=== PATIENT | female | born 1995 | race Caucasian/White ===

== ENCOUNTER 2017-05-10 11:50 | Day surgery (SDC) | payer MEDICAID ==
[2017-05-10] MEDS ORDERED: LR 1,000 ML IV ONE (12:23)
[2017-05-10 12:38] VITALS: PULSE 69
--- NOTE | 2017-05-10 13:17 | PDGENHP ---
History & Physical Chief Complaint: Epigastic pain Relevant Physical Exam: GEN: NAD. Cardiac: RRR. Lungs: CTA B. Abd: Soft, nd, nt
--- NOTE | 2017-05-10 13:18 | PDANEPAE ---
ANE History of Present Illness abdominal pain ANE Past Medical History - Cardiovascular History Hx Hypertension: No Hx Arrhythmias: No Hx Chest Pain: No Hx Coronary Artery / Peripheral Vascular Disease: No Hx CHF / Valvular Disease: No Hx Palpitations: No - Pulmonary History Hx COPD: No Hx Asthma/Reactive Airway Disease: No Hx Recent Upper Respiratory Infection: No Hx Oxygen in Use at Home: No Hx Sleep Apnea: No Sleep Apnea Screening Result - Last Documented: Negative - Neurologic History Hx Cerebrovascular Accident: No Hx Seizures: No Hx Dementia: No - Endocrine History Hx Diabetes: No - Renal History Hx Renal Disorders: No - Liver History Hx Hepatic Disorders: No - Neurological & Psychiatric Hx Hx Neurological and Psychiatric Disorders: Yes Neurological / Psychiatric History Comment: DEPRESSION - Cancer History Hx Cancer: No - Congenital Disorder History Hx Congenital Disorders: No - GI History Hx Gastrointestinal Disorders: Yes Gastrointestinal History Comment: REFLUX,SHARP PAIN MIDLINE UNDER RIBS/DIAHHREA. - Other Health History Other Health History: NONE - Chronic Pain History Chronic Pain: No - Surgical History Prior Surgeries: WISDOM TEETH 2016 ANE Review of Systems Review of Systems: - Exercise capacity METS (RN): 5 METS ANE Patient History - Allergies Allergies/Adverse Reactions: No Known Allergies Allergy (Verified 05/03/17 16:24) - Home Medications Home Medications: Hydrocodon-Acetaminophen 5-325 05/03/17 [Last Taken 05/09/17] Nexium 05/03/17 [Last Taken 05/09/17] Advil PO 05/10/17 [Last Taken 05/10/17] - NPO status NPO Since - Liquids (Date): 05/10/17 NPO Since - Liquids (Time): 11:30 NPO Since - Solids (Date): 05/09/17 NPO Since - Solids (Time): 23:00 - Smoking Hx Smoking Status: Current every day smoker - Family Anes Hx Family Hx Anesthesia Complications: NONE ANE Labs/Vital Signs - Vital Signs Blood Pressure: 108/58 Heart Rate: 69 Respiratory Rate: 14 O2 Sat (%): 97 Height: 160.02 cm Weight: 52.617 kg ANE Physical Exam - Airway Neck exam: FROM Mallampati Score: Class 1 Mouth exam: normal dental/mouth exam - Pulmonary Pulmonary: no respiratory distress - Cardiovascular Cardiovascular: regular rate and rhythym - ASA Status ASA Status: I ANE Anesthesia Plan Total IV Anesthesia: Yes
[2017-05-10] MEDS ORDERED: NALOXONE HCL 0.4 MG/ML INJ IVP PRN (13:19)
--- NOTE | 2017-05-10 13:47 | GIREPORT ---
[facility] Surgical Services - Endoscopy Department Patient Name: Madeline Burciaga Procedure Date: 05/10/2017 1:34 PM Patient Type: Outpatient Attending MD/ ER Physician: Shane Colvin MD Procedure: Upper GI endoscopy Indications: Epigastric abdominal pain after eating. Heartburn. Providers: Shane Colvin MD Medicines: Monitored Anesthesia Care Complications: No immediate complications. Description of Procedure: After obtaining informed consent, the endoscope was passed under direct vision. Throughout the procedure, the patient's blood pressure, pulse, and oxygen saturations were monitored continuous ly. The Endoscope was introduced through the mouth, and advanced to the second part of duodenum. The upper GI endoscopy was accomplished without difficulty. The patient tolerated the procedure well . Findings: The upper third of the esophagus and middle third of the esophagus were normal. The Z-line was irregular and was found 36 cm from the incisors. Biopsies were taken with a cold forceps for histology. Verification of patient identification for the specimen was done by the physician and nurse using the patient's name and date. Estimated blood loss was minimal. Localized mild inflammation characterized by erosions, erythema and friability was found in the gastric antrum. Biopsies were taken with a cold forceps for histology. Verification of patient identification for the specimen was done by the physician and nurse using the patient's name and date. Estimated blood loss was minimal. The examined duodenum was normal. Biopsies were taken with a cold forceps for histology. Verific ation of patient identification for the specimen was done by the physician and nurse using the patient 's name and date. Estimated blood loss was minimal. Estimated Blood Loss: Estimated blood loss: none. Post Op Diagnosis: - Normal upper third of esophagus and middle third of esophagus. - Z-line irregular, 36 cm from the incisors. Biopsied. - Gastritis. Biopsied. - Normal examined duodenum. Biopsied. Recommendation: - Discharge patient to home (ambulatory). - Resume previous diet. - Continue present medications. - Return to GI clinic as previously scheduled. - Await pathology results. Results are available within 10 days. - Thank you for allowing me to participate in the care of your patient. Attending Participation: I personally performed the entire procedure. Shane Colvin MD Shane Colvin MD 05/10/2017 1:47:08 PM Number of Addenda: 0 Note Initiated On: 05/10/2017 1:34 PM [email or web address]
--- NOTE | 2017-05-10 13:49 | POSTANESTH ---
Post Anesthetic Evaluation Cardiovascular Status: Normal, Stable Respiratory Status: Normal, Stable Level of Consciousness/Mental Status: Can Participate in Eval Pain Control: Adequate, Prn Tx Ordered Nausea/Vomiting Control: Adequate, Prn Tx Ordered Complications Possibly Related to Anesthesia: None Noted
[2017-05-10 14:13] VITALS: TEMP 98.1
[2017-05-10 15:16] VITALS: BP 103/63; RESP 16; O2SAT 98
== END 2017-05-10 15:25 | disposition home or self-care (01) ==
LOC: FSGY 11:50
PROVIDERS: ATTEND Internal Medicine Gastroenterology
PROC: 0DB98ZX Excision of Duodenum, Via Natural or Artificial Opening Endoscopic, Diagnostic (ICD-10-PCS; principal; 2017-05-10 13:30)
PROC: 0DB48ZX Excision of Esophagogastric Junction, Via Natural or Artificial Opening Endoscopic, Diagnostic (ICD-10-PCS; principal; 2017-05-10 13:30)
PROC: 0DB68ZX Excision of Stomach, Via Natural or Artificial Opening Endoscopic, Diagnostic (ICD-10-PCS; principal; 2017-05-10 13:30)
DX: K29.70 Gastritis, unspecified, without bleeding (principal); K22.8 Other specified diseases of esophagus; K21.9 Gastro-esophageal reflux disease without esophagitis; K29.80 Duodenitis without bleeding; R10.13 Epigastric pain

== ENCOUNTER 2017-05-11 09:43 | Emergency (ER) | payer MEDICAID ==
--- NOTE | 2017-05-11 10:54 | EDPHY ---
H & P Stated Complaint: Rectal bleeding;had EGD yesterday Time Seen by Provider: 05/11/17 10:53 HPI/ROS: HPI: This is a 21-year-old female who presents with Chief Complaint:Rectal bleeding;had EGD yesterday Location:rectal Quality: bleeding Duration: yesterday Signs and Symptoms:+ nausea, + chronic epigastric pain and burning, no diarrhea , no fever, no chills, no vaginal discharge, no vaginal bleeding, no trauma/ injury, no hemorrhoids Timing: Sudden Severity: Mild Context: Patient reports that she woke up yesterday morning and had a bowel movement tinged with blood. She then had her EGD with Dr. Shane Colvin for epigastric pain which showed gastritis and Z line irregularity that was biopsied. Patient is taking Nexium 40 mg twice a day. She was at work today and had another bowel movement and noted blood in the toilet. She reports that 2-3 years ago she had a rectal sphincter tear during sexual intercourse and has noted some sensitivity to the area since then. She denies any history of hemorrhoids/constipation. She was scheduled for colonoscopy today she received a call 1 hour ago that was canceled due to this hospital being full. Denies regular NSAID use. LMP 2-3 weeks ago. Modifying Factors: None Comment: ROS: see HPI Constitutional: No fever, no chills, no weight loss Eyes: No blurred vision Respiratory: No shortness of breath, no cough Cardiovascular: No chest pain Gastrointestinal: No nausea, no vomiting, no diarrhea Genitourinary: No dysuria Extremities: No myalgias Neurologic: No weakness, no numbness Skin: No rashes Hematologic: No bruising MEDICAL/SURGICAL/SOCIAL HISTORY: Medical history: gastritis Surgical history: Denies Social history: in a relationship CONSTITUTIONAL: petite well-appearing young adult female, awake and alert, no obvious distress HEENT: Atraumatic and normocephalic, PERRL, EOMI. Tympanic membranes clear. Oropharynx clear, no exudate and moist pink mucosa. Airway patent. No lymphadenopathy. No meningismus. Cardiovascular: Normal S1/S2, regular rate, regular rhythm, without murmur rub or gallop. PULMONARY/CHEST: Symmetrical and nontender. Clear to auscultation bilaterally. Good air movement. No accessory muscle usage. ABDOMEN: Soft, nondistended, nontender, no rebound, no guarding, no peritoneal signs, no masses or organomegaly. No CVAT. RECTAL: Good sphincter tone, moderate amount of light brown stool in vault, no external hemorrhoids, no fissures, no palpable masses, no tears, guaiac negative EXTREMITIES: 2/2 pulses, no deformities, no clubbing, no cyanosis or edema. NEUROLOGICAL: no focal neuro deficits. GCS 15. SKIN: Warm and dry, no erythema. no rash. Good capillary refill. Source: Patient Exam Limitations: No limitations - Personal History LMP (Females 10-55): 15-21 Days Ago Current Tetanus Diphtheria and Acellular Pertussis (TDAP): Yes - Medical/Surgical History Hx Asthma: No Hx Chronic Respiratory Disease: No Hx Diabetes: No Hx Cardiac Disease: No Hx Renal Disease: No Hx Cirrhosis: No Hx Alcoholism: No Hx HIV/AIDS: No Hx Splenectomy or Spleen Trauma: No Other PMH: - Social History Smoking Status: Former smoker Constitutional: Initial Vital Signs Temperature (C) 36.6 C 05/11/17 09:50 Heart Rate 54 L 05/11/17 09:50 Respiratory Rate 18 05/11/17 09:50 Blood Pressure 122/66 H 05/11/17 09:50 O2 Sat (%) 97 05/11/17 09:50 O2 Delivery Mode Room Air Allergies/Adverse Reactions: No Known Allergies Allergy (Verified 05/11/17 09:56) Home Medications: Medication Instructions Recorded Nexium 05/03/17 Hydrocortisone Acetate 25 mg SC Q6 PRN #7 supp 05/11/17 [Hemorrhoidal Hc 25 mg supp (*)] Polyethylene Glycol 3350 [Miralax 17 gm PO DAILY PRN #12 pkt 05/11/17 17 gm (*)] Medical Decision Making - Diagnostics Imaging Results: Imaging Impressions Abdomen X-Ray 05/11/17 11:15 Impression: Normal bowel pattern. ED Course/Re-evaluation: Labs, KUB ordered. Vital signs reviewed and stable. Abdominal x-ray my review shows stool in the rectal vault; nonobstructive bowel pattern. Guaiac was negative. 1230: ED decision to consult Dr. Colvin; tried to times with unsuccessful attempt to make contact. 1240: Patient asking to eat something; tolerated to aashish deb, crackers without difficulty. 1310: Patient asking to be discharged home. Differential Diagnosis: Rectal bleeding differential includes hemorrhoids, constipation, diverticular disease, straining with defecation. - Data Points Laboratory Results: 05/11/17 11:10 Stool Occult Bld Scrn NEGATIVE (NEGATIVE) Departure - Departure Disposition: Home, Routine, Self-Care Clinical Impression: Rectal irritation Constipation Qualifiers: Constipation type: unspecified constipation type Qualified Code(s): K59.00 - Constipation, unspecified Condition: Good Instructions: Constipation (ED) Additional Instructions: Abdominal x-ray today shows significant stool burden in your rectal vault. Please prevent constipation and drink plenty of fluids, take MiraLax daily until having daily soft bowel movements. Avoid all NSAIDs including ibuprofen, Aleve, Motrin, etc... Please call Dr. Colvin for your follow-up appointment to re-schedule colonoscopy. Referrals: Shane Colvin MD [Medical Doctor] - As per Instructions Stand Alone Forms: Work Excuse Prescriptions: Hydrocortisone Acetate [Hemorrhoidal Hc 25 mg supp (*)] 25 mg SC Q6 PRN #7 supp PRN Reason: Inflammation Polyethylene Glycol 3350 [Miralax 17 gm (*)] 17 gm PO DAILY PRN #12 pkt PRN Reason: Constipation
[2017-05-11 13:25] VITALS: BP 116/69; PULSE 89; RESP 18; TEMP 98.8; O2SAT 96
== END 2017-05-11 13:19 | disposition home or self-care (01) ==
DX: K62.89 Other specified diseases of anus and rectum (principal); K59.00 Constipation, unspecified; Z87.891 Personal history of nicotine dependence

== ENCOUNTER 2017-06-07 05:57 | Day surgery (SDC) | payer MEDICAID ==
[2017-06-07] MEDS ORDERED: LR 1,000 ML IV ONE (06:12)
[2017-06-07] MEDS ORDERED: LIDOCAINE 1% 2 ML INJ ID PRN (06:12)
--- NOTE | 2017-06-07 07:26 | PDGENHP ---
History & Physical Chief Complaint: Rectal bleeding Relevant Physical Exam: GEN: NAD. Cardiac: RRR. Lungs: CTA B. Abd: Soft, nt, nd
--- NOTE | 2017-06-07 07:26 | PDGENHP ---
History & Physical Chief Complaint: Rectal bleeding Relevant Physical Exam: GEN: NAD. Cardiac: RRR. Lungs: CTA B. Abd: Soft, nt, nd
--- NOTE | 2017-06-07 07:26 | PDGENHP ---
History & Physical Chief Complaint: Rectal bleeding Relevant Physical Exam: GEN: NAD. Cardiac: RRR. Lungs: CTA B. Abd: Soft, nt, nd
--- NOTE | 2017-06-07 07:28 | PDANEPAE ---
ANE History of Present Illness abdominal pain ANE Past Medical History - Cardiovascular History Hx Hypertension: No Hx Arrhythmias: No Hx Chest Pain: No Hx Coronary Artery / Peripheral Vascular Disease: No Hx CHF / Valvular Disease: No Hx Palpitations: No - Pulmonary History Hx COPD: No Hx Asthma/Reactive Airway Disease: No Hx Recent Upper Respiratory Infection: No Hx Oxygen in Use at Home: No Hx Sleep Apnea: No Sleep Apnea Screening Result - Last Documented: Negative - Neurologic History Hx Cerebrovascular Accident: No Hx Seizures: No Hx Dementia: No - Endocrine History Hx Diabetes: No - Renal History Hx Renal Disorders: No - Liver History Hx Hepatic Disorders: No - Neurological & Psychiatric Hx Hx Neurological and Psychiatric Disorders: Yes Neurological / Psychiatric History Comment: DEPRESSION/anxiety - Cancer History Hx Cancer: No - Congenital Disorder History Hx Congenital Disorders: No - GI History Hx Gastrointestinal Disorders: Yes Gastrointestinal History Comment: REFLUX,DIARRHEA. pain "Bottom of stomach". - Other Health History Other Health History: NONE - Chronic Pain History Chronic Pain: No - Surgical History Prior Surgeries: upper endoscopy 05-03-17. WISDOM TEETH 2016 ANE Review of Systems Review of Systems: ANE Patient History - Allergies Allergies/Adverse Reactions: No Known Allergies Allergy (Verified 05/24/17 13:45) - Home Medications Home Medications: Ranitidine HCl 05/24/17 [Last Taken Unknown] - NPO status NPO Since - Liquids (Date): 06/06/17 NPO Since - Liquids (Time): 22:00 NPO Since - Solids (Date): 06/05/17 NPO Since - Solids (Time): 21:00 - Smoking Hx Smoking Status: Former smoker - Family Anes Hx Family Hx Anesthesia Complications: NONE ANE Labs/Vital Signs - Vital Signs Blood Pressure: 126/77 Heart Rate: 66 Respiratory Rate: 16 O2 Sat (%): 94 Height: 160.02 cm Weight: 52.617 kg ANE Physical Exam - Airway Neck exam: FROM Mallampati Score: Class 1 Mouth exam: normal dental/mouth exam - Pulmonary Pulmonary: no respiratory distress - Cardiovascular Cardiovascular: regular rate and rhythym - ASA Status ASA Status: I ANE Anesthesia Plan Total IV Anesthesia: Yes
[2017-06-07] MEDS ORDERED: PROPOFOL 200 MG/20 ML VIAL ONE ×2 (07:30)
--- NOTE | 2017-06-07 07:54 | GIREPORT ---
[facility] Surgical Services - Endoscopy Department Patient Name: Madeline Burciaga Procedure Date: 06/07/2017 7:19 AM Patient Type: Outpatient Attending / ER Physician: Shane Colvin MD Procedure: Colonoscopy Indications: Hematochezia Providers: Shane Colvin MD Medicines: Monitored Anesthesia Care Complications: No immediate complications. Description of Procedure: After obtaining informed consent, the scope was passed under direct vis ion. Throughout the procedure, the patient's blood pressure, pulse, and oxyg en saturations were monitored continuously. The Colonoscope with irrigatio n channel was introduced through the anus and advanced to the terminal il eum, with identification of the appendiceal orifice and IC valve. The colono scopy was performed without difficulty. The patient tolerated the procedure w ell. The quality of the bowel preparation was good. Findings: The perianal and digital rectal examinations were normal. The terminal ileum appeared normal. The colon (entire examined portion) appeared normal. The retroflexed view of the distal rectum and anal verge was normal and showed no anal or rectal abnormalities. Estimated Blood Loss: Estimated blood loss: none. Post Op Diagnosis: - The examined portion of the ileum was normal. - The entire examined colon is normal. - The distal rectum and anal verge are normal on retroflexion view. - No specimens collected. - No findings to explain rectal bleeding. Recommendation: - Discharge patient to home (with escort). - Resume previous diet. - Continue present medications. - Repeat colonoscopy at age 50 for screening purposes. - Thank you for allowing me to participate in the care of your patient. Attending Participation: I personally performed the entire procedure. Shane Colvin MD Shane Colvin MD 06/07/2017 7:53:55 AM This report has been signed electronicallyDayancy Colvin MD Number of Addenda: 0 Note Initiated On: 06/07/2017 7:19 AM Total Procedure Duration Time 0 hours 11 minutes 27 seconds [email or web address]
[2017-06-07] MEDS ORDERED: NALOXONE HCL 0.4 MG/ML INJ IVP PRN (07:58)
[2017-06-07 08:49] VITALS: RESP 18; O2SAT 98
[2017-06-07 09:10] VITALS: BP 110/60; PULSE 85; TEMP 97.3
== END 2017-06-07 09:08 | disposition home or self-care (01) ==
LOC: FSGY 05:57
PROVIDERS: ATTEND Internal Medicine Gastroenterology
PROC: 0DJD8ZZ Inspection of Lower Intestinal Tract, Via Natural or Artificial Opening Endoscopic (ICD-10-PCS; principal; 2017-06-07 07:30)
DX: K92.1 Melena (principal); K21.9 Gastro-esophageal reflux disease without esophagitis; Z87.891 Personal history of nicotine dependence
CPT/HCPCS: J2704